=== PATIENT | male | born 1990 | race African-American/Black ===

== ENCOUNTER 2017-10-26 23:01 | Emergency (ER) | payer OTHER ==
[~2017-10-26] VITALS: Ht 198.1 cm; Wt 131.5 kg
[~2017-10-26 23:01] MED LIST: CYCLOBENZAPRINE10 MG ORAL; IBUPROFEN600 MG PO; IBUPROFEN800 MG ORAL; KEFLEX500 MG ORAL; VALIUM5 MG PO; VICODIN 5-5001 EACH PO
[2017-10-26 23:55] VITALS: BP 142/87
[2017-10-26] MEDS ORDERED: ATIVAN1 MG ORAL (23:57)
--- NOTE | 2017-10-26 23:57 | Emergency Room Report ---
History of Present Illness General Chief Complaint: General Complaint Source: Patient, Family Member, Medical Record Present Illness HPI Is a 27-year-old male with no past medical history. He presents with chief complaint of anxiety and inability to sleep. He had a recent in the family and his been bothering him. He said it is hard time sleeping. Hard time falling asleep and staying asleep. No suicidal thoughts was homicidal thought. No nausea no vomiting. No drug use. He went to an urgent care and had an EKG done. The doctor there was concerned and sent him here for blood work. He denies any chest pain or any other complaint. Allergies: Coded Allergies: No Known Allergies (Unverified , 05/04/14) Patient History Past Medical History: see triage record, old chart reviewed Past Surgical History: none Pertinent Family History: none Social History: Denies: smoking Immunizations: other Reviewed Nursing Documentation: PMH: Agreed; PSxH: Agreed Review of Systems Eye: Denies: eye pain, blurred vision ENT: Denies: ear pain, nose congestion, throat swelling Respiratory: Denies: cough, shortness of breath Cardiovascular: Denies: chest pain, palpitations Gastrointestinal: Denies: abdominal pain, diarrhea, nausea, vomiting Musculoskeletal: Denies: back pain, joint pain Skin: Denies: rash Neurological: Denies: headache, numbness Endocrine: Denies: increased thirst, increased urine Hematologic/Lymphatic: Denies: easy bruising All Other Systems: negative except mentioned in HPI Physical Exam Vital Signs Date Time Temp Pulse Resp B/P (MAP) Pulse Ox O2 Delivery O2 Flow Rate FiO2 10/26/17 23:28 98.3 97 18 148/89 98 Room Air 98.2 vitals unremarkable Sp02 EP Interpretation: reviewed, normal General Appearance: well appearing, no apparent distress, alert Head: normocephalic, atraumatic Eyes: bilateral eye PERRL, bilateral eye EOMI ENT: hearing grossly normal, normal pharynx Neck: full range of motion, supple, no meningismus Respiratory: chest non-tender, lungs clear, normal breath sounds Cardiovascular #1: regular rate, rhythm, no murmur Gastrointestinal: normal bowel sounds, non tender, no mass, no organomegaly, no bruit, non-distended Musculoskeletal: back normal, gait/station normal, normal range of motion Psychiatric: mood/affect normal Skin: warm/dry Medical Decision Making Diagnostic Impression: Primary Impression: Acute reaction to stress ER Course Patient presents with an acute reaction to stress. No suicidal thought homicidal thought. No evidence of ACS or PE. I reviewed the EKGs done at urgent care. She showed early repolarization without any evidence of ST elevation VT. I see no need for blood Work. Last Vital Signs Date Time Temp Pulse Resp B/P (MAP) Pulse Ox O2 Delivery O2 Flow Rate FiO2 10/26/17 23:28 98.3 97 18 148/89 98 Room Air 98.2 Status: improved Disposition: HOME, SELF-CARE Condition: Stable Scripts Lorazepam* (ATIVAN*) 1 Mg Tablet 1 MG ORAL THREE TIMES A DAY, #15 TAB Prov: REJI CARY M.D. 10/26/17 Referrals: [facility],REFERRING (PCP) Additional Instructions: Follow-up with your doctor in 7 days. Return if worse. REJI CARY M.D. Oct 26, 2017 23:57
[2017-10-27] VITALS: BP 142/87
[2017-10-27] MEDS ORDERED: LORazepam 1mg tab ORAL ONE
== END 2017-10-27 | disposition home or self-care (01) ==
LOC: EMR 23:25
DX: F43.0 Acute stress reaction (principal)
CPT/HCPCS: 99283

== ENCOUNTER 2017-10-30 17:03 | Emergency (ER) | payer OTHER ==
[~2017-10-30] VITALS: Ht 198.1 cm; Wt 131.5 kg
[~2017-10-30 17:03] MED LIST changes: +ATIVAN1 MG ORAL
[2017-10-30 17:20] VITALS: BP 132/75
--- NOTE | 2017-10-30 17:44 | Emergency Room Report ---
History of Present Illness General Chief Complaint: Upper Respiratory Illness Source: Patient Present Illness HPI 27 yo male patient presents to ER complaining of cough and chest tightness x2 days. Reports seen in ER a few days ago for similar symptoms; diagnosed with anxiety, EKGs at that time normal. Reports saw primary care provider yesterday for similar symptoms; given sleeping medication and referral to mental health for anxiety. Reports dry cough. Denies hemoptysis, denies worsening of cough with exercise or at night. Reports plays basketball without symptoms. Reports single episode of vomiting after eating earlier today; hx of acid reflux , takes Ranitidine for symptoms. Denies fever, shortness of breath, abdominal pain. Denies recent travel. Denies contacts with similar symptoms. Reports worsening of symptoms when he "thinks about" his symptoms. Denies hx of asthma of cardiovascular disease. Allergies: Coded Allergies: No Known Allergies (Unverified , 05/04/14) Patient History Past Medical History: see triage record Reviewed Nursing Documentation: PMH: Agreed; PSxH: Agreed Nursing Documentation-PMH Past Medical History: No Stated History Review of Systems All Other Systems: negative except mentioned in HPI Physical Exam Vital Signs Date Time Temp Pulse Resp B/P (MAP) Pulse Ox O2 Delivery O2 Flow Rate FiO2 10/30/17 17:17 84 16 132/75 95 Room Air Sp02 EP Interpretation: reviewed, normal General Appearance: well appearing, no apparent distress, alert, GCS 15, non- toxic Head: normocephalic, atraumatic Eyes: bilateral eye normal inspection, bilateral eye PERRL ENT: hearing grossly normal, normal pharynx, no angioedema, normal voice, TMs + canals normal, uvula midline, moist mucus membranes Neck: full range of motion Respiratory: lungs clear, normal breath sounds, no rhonchi, no respiratory distress, no accessory muscle use, no wheezing, speaking full sentences Cardiovascular #1: regular rate, rhythm, no edema Gastrointestinal: non tender, soft, no mass, non-distended, no guarding, no rebound, other - negative Mruphy, negative Rovsing Genitourinary: no CVA tenderness Musculoskeletal: back normal, digits/nails normal, gait/station normal, normal range of motion, non-tender Psychiatric: mood/affect normal Skin: no rash Lymphatic: no adenopathy Medical Decision Making PA Attestation Dr. Braxton is my supervising Physician whom patient management has been discussed with. Diagnostic Impression: Primary Impression: Cough Additional Impression: Gastric reflux ER Course Pt presents to ED c/o cough and congestion. DDX considered but are not limited to influenza, viral URI, pneumonia, strep throat, rhinitis, sinusitis, otitis media, anxiety, gastritis, acid reflux. Low suspicion for PE per Well's criteria. Negative Mckeon sign, negative Rovsing, low suspicion for cholecystitis and appendicitis respectively. VITAL SIGNS are WNL, patient is afebrile Ordered Chest xray and Zofran. Reviewed previous chart and reports; patient does not need repeat EKG or cardiac workup at this time. ER COURSE: PE benign, no wheezes, rhonci, or rales. CXR negative for acute disease. Cough likely viral in etiology, may be cause of chest tightness, may also be related to anxiety. Will give cough syrup for symptoms. Followup with PCP for acid reflux symptoms. Eat GERD friendly diet. Provide patient instructions. Patient reports feeling better following "talking" with me in ER. Followup with mental health professional. Patient nontoxic appearing, smiling and laughing, texting on phone. ER precautions given. DISCHARGE: -Rx given for Promethazine-DM syrup for cough sx. At this time pt is stable for d/c to home. Patient is resting comfortably, in no acute distress, nontoxic appearing. Patient to take medications as instructed Will provide with patient care instructions and any necessary prescriptions. Care plan and follow-up instructions provided. Patient instructed to follow-up with primary care provider in 3 - 5 days. Patient questions asked and answered. Patient reports understanding and agreement to treatment plan. ER precautions given. Patient instructed to return to ER immediately for any new or worsening of symptoms including but not limited to increasing SOB, persistent fever, sharp chest pain, vomiting blood, coughing up blood, blood in stool or emesis, intractable vomiting or abdominal pain. Chest X-Ray Diagnostic Results Chest X-Ray Diagnostic Results : Chest X-Ray Ordered: Yes # of Views/Limited/Complete: 1 View Indication: Chest Pain EP Interpretation: Yes JOHANNE Xray: Interpretation reviewed, by supervising MD, and agrees with findings. Interpretation: no consolidation, no effusion, no pneumothorax, no acute cardiopulmonary disease Impression: No acute disease JOHANNE Flores PA-C Last Vital Signs Date Time Temp Pulse Resp B/P (MAP) Pulse Ox O2 Delivery O2 Flow Rate FiO2 10/30/17 17:17 84 16 132/75 95 Room Air Disposition: HOME, SELF-CARE Condition: Stable Scripts D-Methorphan Hb/Prometh Hcl* (PROMETHAZINE-DM SYRUP*) 118 Ml Syrup 5 ML ORAL Q6H PRN for For Cough for 5 Days, #118 ML 0 Refills Prov: Pritesh Flores 10/30/17 Patient Instructions: Cough, Adult, [id number], Food Choices for Gastroesophageal Reflux Disease, Adult Additional Instructions: Followup with primary care provider and mental health professional. Avoid spicy foods, avoid dairy foods. Avoid greasy, fatty foods. Avoid late night meals. BRAT diet: bananas, rice, apple sauce, toast. Take medications as directed. Take Tylenol for pain. Take Ranitidine for reflux symptoms. Patient questions asked and answered. ER precautions given, patient instructed to return to ER immediately for any new or worsening of symptoms. Pritesh Flores Oct 30, 2017 17:44
[2017-10-30] MEDS ORDERED: PROMETHAZINE-D118 ML ORAL (18:13)
[2017-10-30 18:23] VITALS: BP 144/82
--- NOTE | 2017-10-31 11:02 | Diagnostic Imaging Report ---
Indication: Pain Technique: XRAY Chest 1v Comparison: None Findings: Heart size and mediastinal contours are within normal limits given technique. There is no focal consolidation, pneumothorax or pleural effusion. Osseous structures demonstrate no acute abnormality. Impression: No radiographic evidence of acute cardiopulmonary disease.
== END 2017-10-30 18:28 | disposition home or self-care (01) ==
LOC: EMR 17:48
DX: R05 Cough (principal); K21.9 Gastro-esophageal reflux disease without esophagitis
CPT/HCPCS: 71045; 99283

== ENCOUNTER 2018-04-18 17:56 | Emergency (ER) | payer OTHER ==
[~2018-04-18] VITALS: Ht 182.9 cm; Wt 131.5 kg
[~2018-04-18 17:56] MED LIST changes: +PROMETHAZINE-D118 ML ORAL
--- NOTE | 2018-04-18 18:12 | Emergency Room Report ---
History of Present Illness General Chief Complaint: Lower Extremity Injury Source: Patient Present Illness HPI 27-year-old male presents to the emergency department complaining of acute onset 7 out of 10 in severity localized pain to the posterior thigh after playing basketball. Patient reports that pain is exacerbated upon palpation as well as walking or going from sitting to standing position. Patient denies bone pain or knee pain. Patient reports that his symptoms are primarily in the left hamstring. Denies trauma or fall otherwise. Denies paresthesias. Allergies: Coded Allergies: No Known Allergies (Unverified , 05/04/14) Patient History Past Medical History: see triage record Past Surgical History: none Pertinent Family History: none Reviewed Nursing Documentation: PMH: Agreed; PSxH: Agreed Nursing Documentation-PM Past Medical History: No History, Except For Review of Systems All Other Systems: negative except mentioned in HPI Physical Exam Vital Signs Date Time Temp Pulse Resp B/P (MAP) Pulse Ox O2 Delivery O2 Flow Rate FiO2 04/18/18 18:00 98.1 58 18 121/79 98 Room Air 98.1 Sp02 EP Interpretation: reviewed, normal General Appearance: no apparent distress, alert, GCS 15, non-toxic Head: normocephalic, atraumatic Eyes: bilateral eye normal inspection, bilateral eye PERRL ENT: hearing grossly normal, normal voice Neck: full range of motion Respiratory: lungs clear, normal breath sounds, speaking full sentences Cardiovascular #1: regular rate, rhythm Cardiovascular #2: 2+ dorsalis pedis (L) - post. tib Musculoskeletal: back normal, gait/station normal - compensatory, normal range of motion, tender - TTP left hamstring Neurologic: alert, oriented x3, responsive, motor strength/tone normal, sensory intact, speech normal, grossly normal Psychiatric: judgement/insight normal Skin: normal color, no rash, warm/dry, well hydrated Medical Decision Making PA Attestation Dr. jones is my supervising Physician whom patient management has been discussed with. Diagnostic Impression: Primary Impression: Muscle strain ER Course 27-year-old male presents to the emergency department complaining of acute onset 7 out of 10 in severity localized pain to the posterior thigh after playing basketball. Patient reports that pain is exacerbated upon palpation as well as walking or going from sitting to standing position. Patient denies bone pain or knee pain. Patient reports that his symptoms are primarily in the left hamstring. Denies trauma or fall otherwise. Denies paresthesias. Ddx considered but are not limited to Fracture, dislocation, contusion, Sprain/ Strain/Spasm just to name a few Vital signs: are WNL, pt. is afebrile H&PE are most consistent with musculoskeletal injury will perform imaging to r/ o fractures/dislocations. ORDERS: - X-ray's not warranted, no bony ttp, symptoms localized to musculature. ED INTERVENTIONS: none required at this time. DISCHARGE: At this time pt. is stable for d/c to home. Will provide printed patient care instructions, and any necessary prescriptions. Care plan and follow up instructions have been discussed with the patient prior to discharge. Last Vital Signs Date Time Temp Pulse Resp B/P (MAP) Pulse Ox O2 Delivery O2 Flow Rate FiO2 04/18/18 18:00 98.1 58 18 121/79 98 Room Air 98.1 Disposition: HOME, SELF-CARE Condition: Stable Departure Forms: Return to Work Return to Work Date: Apr 19, 2018 Work Restrictions: No Heavy Lifting, No Prolonged Standing Other Restrictions: light duty x 1 week. Return to Full Activity: Apr 26, 2018 Patient Instructions: Hamstring Strain Additional Instructions: Take medications as directed. Follow up with a Primary Care Provider in 3-5 days, even if your symptoms have resolved. --Please review list of primary care clinics, if you do not already have a primary care provider Return sooner to ED if new symptoms occur, or current symptoms become worse. - Please note that this Emergency Department Report was dictated using [employer] adolescent care technology software, occasionally this can lead to erroneous entry secondary to interpretation by the dictation equipment. Kamilah Lui Apr 18, 2018 18:12
[2018-04-18] MEDS ORDERED: IBUPROFEN600 MG ORAL (18:13)
[2018-04-18 18:24] VITALS: BP 121/79
== END 2018-04-18 18:33 | disposition home or self-care (01) ==
LOC: EMR 18:23
DX: S76.312A Strain of muscle, fascia and tendon of the posterior muscle group at thigh level, left thigh, initial encounter (principal); Y93.67 Activity, basketball; Y92.39 Other specified sports and athletic area as the place of occurrence of the external cause
CPT/HCPCS: 99282